=== PATIENT | female | born 1940 | race Caucasian/White ===

== ENCOUNTER 2019-04-06 16:30 | Outpatient (CLI) | payer MEDICARE, SELFPAY ==
[2019-04-06 17:06] LABS: Gentamicin Trough 1.9 ug/mL (0.0-8.0)
[2019-04-06 17:23] LABS: Gentamicin Peak 13.5 ug/mL (2.0-8.0)
== END 2019-04-06 16:31 | disposition home or self-care (01) ==
LOC: LAB 16:36
PROVIDERS: PCP Dermatology; Visit Provider Family Medicine
DX: Z01.89 Encounter for other specified special examinations (principal)
CPT/HCPCS: 80170